=== PATIENT | female | born 1930 | race Caucasian/White ===

== ENCOUNTER → 2018-02-06 | Outpatient (CLI) | payer MEDICARE ==
[~2018-02-06] MED LIST: AMLO1CAP12 PO; CALC500T54 PO; EZET1TAB41 PO; GLIP5POW MC; INSU100I18 SQ; METF500T16 PO; OMEP20CA9 PO; POTA10TA5 PO; VIT1TABL32 PO
--- NOTE | 2018-02-06 12:48 | RAD ---
MR#: [id number] Date of Study: 02/06/2018 Ordering Physician: CYNTHIA WHEAT, Referring Physician: CYNTHIA WHEAT, Tech: Minda Pierre RDMS, RVT APPROVED REPORT Patient Location: OUT-PATIENT Laterality:Bilateral Indications Bruit Grayscale images of the bilateral common carotid, internal and external carotid vessels reveal mild n onobstructive plaque mostly localized to the bilateral carotid bulbs. Spectral waveforms and color Doppler on the right and left sides involving the internal cardio arteri es do not reveal any significant obstructive lesions. Overall 0 to less than 50% stenosis. The bilateral vertebral velocities are within normal limits. Normal bilateral ICA to CCA ratios. Surgery/Intervention Endarterectomy: right left Doppler Spectral Velocity Analysis Right Left pCCA 65/8 cm/spCCA 54/7 cm/s mCCA 70/6 cm/smCCA 52/9 cm/s dCCA 69/8 cm/sdCCA 55/10 cm/s Bulb Bulb 55/5 cm/s ECA 62/7 cm/sECA 167/2 cm/s pICA 50/7 cm/spICA 38/7 cm/s Roberto 63/9 cm/smICA 29/7 cm/s dICA 65/11 cm/sdICA 32/7 cm/s Vert. 45/9 cm/sVert. 27/6 cm/s Subcl. 54/4 cm/sSubcl. 47/7 cm/s ICA/CCA 0.93ICA/CCA 0.70 Critical Notification Critical Value: No <Conclusion> No significant carotid arterial disease. Previous carotid endarterectomies do not have any significant restenosis. Signed by : León Peraza, Electronically Approved : 02/06/2018 12:47:25
--- NOTE | 2018-02-06 13:59 | CARD ---
MR#: [id number] Account#: Date of Study: 02/06/2018 Ordering Physician: Drake: Xi Baird RDCS APPROVED REPORT EXAM: Two-dimensional and M-mode echocardiogram with Doppler and color Doppler. Other Information Quality : Good INDICATION Cardiac Disease: CAD Surgery/Intervention Pacemaker: 2D DIMENSIONS RVDd2.5 (2.9-3.5cm)Left Atrium(2D)3.8 (1.6-4.0cm) IVSd1.0 (0.7-1.1cm)Aortic Root(2D)2.5 (2.0-3.7cm) LVDd4.6 (3.9-5.9cm)LVOT Diameter2.0 (1.8-2.4cm) PWd0.9 (0.7-1.1cm)LVDs3.3 (2.5-4.0cm) FS (%) 29.1 %SV55.5 ml LVEF(%)56.0 (>50%) Aortic Valve AoV Peak Hiram.119.4cm/sAoV VTI23.5cm AO Peak GR.5.7mmHgLVOT Peak Hiram.87.8cm/s LVOT VTI 19.01cmAO Mean GR.3mmHg MODESTA (VMAX)2.73be2JQP (VTI)2.42cm2 Mitral Valve MV E Qsrspdji606.3cm/sMV DECEL ZKUM684ym MV A Hxzvhhpu85.4cm/sE/A Ratio1.9 Tricuspid Valve TR P. Sqakzpqj134fe/sRAP FOCMAKGA6zaLr TR Peak Gr.02elUiYXWZ31txGr Pulmonary Vein S1 Nchwwyzs12.4cm/sD2 Ikcbhjyu07.6cm/s LEFT VENTRICLE The left ventricle is normal size. There is normal left ventricular wall thickness. The left ventricu lar systolic function is normal and the ejection fraction is within normal range. The Ejection Fracti on is 55-60%. There is normal LV segmental wall motion. RIGHT VENTRICLE The right ventricle is normal size. The right ventricular systolic function is normal. There is a dev ice lead in the right ventricle. ATRIA The left atrium is borderline dilated. The right atrium size is normal. A device lead is seen in the right atrium consistent with history. The interatrial septum is intact with no evidence for an atrial septal defect or patent foramen ovale as noted on 2-D or Doppler imaging. AORTIC VALVE The aortic valve is calcified but opens well. Doppler and Color Flow revealed no significant aortic r egurgitation. There is no significant aortic valvular stenosis. MITRAL VALVE The mitral valve is calcified but opens well. Mitral annular calcification is mild. There is no evide nce of mitral valve prolapse. There is no mitral valve stenosis. Doppler and Color-flow revealed mode rate mitral regurgitation. TRICUSPID VALVE The tricuspid valve is normal in structure and function. Doppler and Color Flow revealed moderate tri cuspid regurgitation. The PA pressure was estimated at 62 mmHg. There is no tricuspid valve stenosis. PULMONIC VALVE The pulmonic valve is not well visualized. Doppler and Color Flow revealed trace pulmonic valvular re gurgitation. There is no pulmonic valvular stenosis. GREAT VESSELS The aortic root is normal in size. The ascending aorta is normal in size. The IVC is normal in size a nd collapses >50% with inspiration. PERICARDIAL EFFUSION There is no evidence of significant pericardial effusion. Critical Notification Critical Value: No <Conclusion> The left ventricle is normal size. The left ventricular systolic function is normal and the ejection fraction is within normal range. The Ejection Fraction is 55-60%. There is a device lead in the right ventricle. The right atrium size is normal. A device lead is seen in the right atrium consistent with history. There is no significant aortic valvular stenosis. Doppler and Color Flow revealed no significant aortic regurgitation. Doppler and Color-flow revealed moderate mitral regurgitation. Doppler and Color Flow revealed moderate tricuspid regurgitation. The PA pressure was estimated at 62 mmHg. Signed by : Baltazar Snell MD Electronically Approved : 02/06/2018 11:52:43
== END | disposition home or self-care (01) ==
LOC: US 08:52
PROVIDERS: ATTEND Internal Medicine Cardiovascular Disease
DX: I25.10 Atherosclerotic heart disease of native coronary artery without angina pectoris (principal); I08.1 Rheumatic disorders of both mitral and tricuspid valves; R09.89 Other specified symptoms and signs involving the circulatory and respiratory systems; Z88.8 Allergy status to other drugs, medicaments and biological substances
CPT/HCPCS: 93306; 93880

== ENCOUNTER 2018-12-13 10:48 | Inpatient (IN) | payer MEDICARE ==
[~2018-12-13] VITALS: Ht 149.9 cm; Wt 55.8 kg
[~2018-12-13 10:48] MED LIST changes: -AMLO1CAP12 PO; +AMLO1CAP13 PO; +OMEP20CA10 PO; -OMEP20CA9 PO
[2018-12-13] MEDS ORDERED: IV NORMAL SALINE 1,000ML 1,000 ML IV ONE (11:15)
--- NOTE | 2018-12-13 11:19 | PHYS DOC ---
Past History Past Medical History: CAD, Diabetes, Hypertension Past Surgical History: Appendectomy, Cholecystectomy, Hysterectomy, Tonsillectomy, Other Additional Past Surgical Histo: SHOULDER SURGERY, HEART CATH WITH STENTS, SHOULDER SURGERY Alcohol Use: None Drug Use: None Adult General Chief Complaint Chief Complaint: MULTIPLE COMPLAINTS HPI HPI 88-year-old female presents to the emergency department with multiple complaints. Patient was seen at her primary care physician's office on Monday as well as Monday. She describes nausea, loose stools, vomiting �3-4 days. She is well describes coughing and runny nose. Patient overall has had decreased oral intake both liquid and food, she states she did take lucerne at today. Patient has a history of diabetes. She denies any fevers or chills, denies any chest pain or shortness of breath. She denies any abdominal pain or distention on exam. Review of Systems Review of Systems Constitutional: Denies fever or chills [] HENT: Nasal congestion Respiratory: Cough, no shortness of breath Cardiovascular: No additional information not addressed in HPI [] GI: Nausea, vomiting, loose stool : Denies dysuria or hematuria [] Musculoskeletal: Denies back pain or joint pain [] Integument: Bilateral lower x-rays rash Neurologic: Denies headache, focal weakness or sensory changes [] All other systems were reviewed and found to be within normal limits, except as documented in this note. Current Medications Current Medications Current Medications Medications (Trade) Dose Ordered Sig/Wade Start Time Stop Time Status Last Admin Dose Admin Ondansetron HCl (Zofran) 4 mg 1X ONCE 12/13/18 11:30 12/13/18 11:31 Sodium Chloride 1,000 ml @ 1,000 mls/hr 1X ONCE 12/13/18 11:15 12/13/18 12:14 Allergies Allergies Allergies Coded Allergies Type Severity Reaction Last Updated Verified clopidogrel Allergy Severe 07/23/13 Yes iodine Allergy Severe 07/23/13 Yes carvedilol Allergy Unknown 07/23/13 Yes ciprofloxacin Allergy Unknown 12/13/18 Yes Uncoded Allergies Type Severity Reaction Last Updated Verified AMENGL Allergy Unknown 07/23/13 CYPRIL Allergy Unknown 07/23/13 GLUGAPHAGE Allergy Unknown 07/23/13 Physical Exam Physical Exam Constitutional: Well developed, well nourished, no acute distress, non-toxic appearance. [] HENT: Normocephalic, atraumatic, bilateral external ears normal, oropharynx dry, no oral exudates, nose normal. [] Eyes: PERRLA, EOMI, conjunctiva normal, no discharge. [] Cardiovascular:Heart rate regular rhythm, no murmur [] Lungs & Thorax: Bilateral breath sounds clear to auscultation [] Abdomen: Bowel sounds normal, soft, no tenderness, no masses, no pulsatile masses. [] Skin: Warm, dry, no erythema, bilateral lower extremity rash, appears petechial, nonraised Extremities: No tenderness, no cyanosis, no clubbing, trace edema bilateral lower extremity Neurologic: Alert and oriented X 3, no focal deficits noted. [] Psychologic: Affect normal, judgement normal, mood normal. [] Current Patient Data Vital Signs Vital Signs Date Time Temp Pulse Resp B/P (MAP) Pulse Ox O2 Delivery O2 Flow Rate FiO2 12/13/18 10:59 97.2 85 18 93 Room Air Lab Results Laboratory Tests Test 12/13/18 11:12 White Blood Count 10.0 x10^3/uL Red Blood Count 3.75 x10^6/uL Hemoglobin 11.7 g/dL Hematocrit 35.1 % Mean Corpuscular Volume 94 fL Mean Corpuscular Hemoglobin 31 pg Mean Corpuscular Hemoglobin Concent 33 g/dL Red Cell Distribution Width 13.3 % Platelet Count 343 x10^3/uL Neutrophils (%) (Auto) 80 % Lymphocytes (%) (Auto) 7 % Monocytes (%) (Auto) 8 % Eosinophils (%) (Auto) 5 % Basophils (%) (Auto) 1 % Neutrophils # (Auto) 8.0 x10^3uL Lymphocytes # (Auto) 0.7 x10^3/uL Monocytes # (Auto) 0.8 x10^3/uL Eosinophils # (Auto) 0.5 x10^3/uL Basophils # (Auto) 0.1 x10^3/uL Sodium Level 124 mmol/L Potassium Level 4.8 mmol/L Chloride Level 89 mmol/L Carbon Dioxide Level 26 mmol/L Anion Gap 9 Blood Urea Nitrogen 16 mg/dL Creatinine 1.4 mg/dL Estimated GFR (Cockcroft-Gault) 35.4 BUN/Creatinine Ratio 11 Glucose Level 163 mg/dL Lactic Acid Level 0.7 mmol/L Calcium Level 8.6 mg/dL Total Bilirubin 0.5 mg/dL Aspartate Amino Transf (AST/SGOT) 16 U/L Alanine Aminotransferase (ALT/SGPT) 14 U/L Alkaline Phosphatase 96 U/L Total Protein 6.9 g/dL Albumin 3.1 g/dL Albumin/Globulin Ratio 0.8 Current Medications Medications (Trade) Dose Ordered Sig/Wade Route PRN Reason Start Time Stop Time Status Last Admin Dose Admin Sodium Chloride 1,000 ml @ 1,000 mls/hr 1X ONCE IV 12/13/18 11:15 12/13/18 12:14 DC 12/13/18 11:18 Ondansetron HCl (Zofran) 4 mg 1X ONCE IV 12/13/18 11:30 12/13/18 11:31 DC 12/13/18 11:20 Ceftriaxone Sodium 1 gm/ Sodium Chloride 50 ml @ 100 mls/hr 1X ONCE IV 12/13/18 12:45 12/13/18 13:14 Azithromycin (Zithromax) 500 mg 1X ONCE PO 12/13/18 12:45 12/13/18 12:46 EKG EKG EKG reviewed 1134, sinus rhythm, no evidence of acute ST elevation.[] Radiology/Procedures Radiology/[place] [address] IMAGING REPORT Signed PATIENT: DAVID MONROE ACCOUNT: [id number] : 1930 LOCATION: ER AGE: 88 SEX: F EXAM STATUS: REG ER ORD. PHYSICIAN: PEDRITO KINSEY MD REASON: cough PROCEDURE: CHEST AP ONLY EXAM: CHEST 1 VIEW History: Cough COMPARISON: None available. TECHNIQUE: Single portable radiograph of the chest FINDINGS: The cardiac silhouette is unremarkable. Left-sided cardiac pacer is identified. Mild prominent bilateral interstitial lung markings, left greater than right, could be interstitial infiltrates or chronic interstitial changes or pneumonia. IMPRESSION: Prominent appearing bilateral interstitial lung markings left greater than right could be interstitial infiltrates or pneumonia or chronic interstitial changes. Electronically signed by: Kai Vasquez MD (12/13/2018 11:59 AM) [id number] DICTATED AND SIGNED BY: KAI VASQUEZ MD DATE: 12/13/18 1159 CC: PEDRITO KINSEY MD; LEV ESCALANTE MD ~ [] Course & Med Decision Making Course & Med Decision Making Pertinent Labs and Imaging studies reviewed. (See chart for details) 88-year-old female presents to the emergency department with multiple complaints. Patient was seen at her primary care physician's office on Monday as well as Monday. She describes nausea, loose stools, vomiting �3-4 days. She is well describes coughing and runny nose. Patient overall has had decreased oral intake both liquid and food, she states she did take lucerne at today. Patient has a history of diabetes. She denies any fevers or chills, denies any chest pain or shortness of breath. She denies any abdominal pain or distention on ex am. Labs and imaging reviewed. Evidence of consolidation in left lung, greater than right. WBC normal however with desaturations into the 80's at rest. Cultures obtained, IV abx initiated for CAP in the ER. Discussed admit with Hospitalist. Hydration 500ml provided in ER Dragon Disclaimer Dragon Disclaimer This electronic medical record was generated, in whole or in part, using a voice recognition dictation system. Departure Departure: Impression: Primary Impression: CAP (community acquired pneumonia) Additional Impressions: Hypoxemia Hyponatremia Disposition: ADMITTED INPATIENT Admitting Physician: Ly Box Condition: STABLE Referrals: LEV ESCALANTE MD (PCP) Problem Qualifiers Primary Impression: CAP (community acquired pneumonia) Laterality: left Lung location: lower lobe of lung Qualified Codes: J18.1 - Lobar pneumonia, unspecified organism PEDRITO KINSEY MD Dec 13, 2018 11:18
[2018-12-13] MEDS ORDERED: ONDANSETRON PF 4 MG/2 ML VIAL. IV ONE (11:30)
[2018-12-13 11:38] LABS: BASO # 0.1 x10^3/uL (0.0-0.2); BASO % 1 % (0-3); EOS # 0.5 x10^3/uL (0.0-0.7); EOS % 5 % (0-3); HEMATOCRIT 35.1 % (36.0-47.0); HEMOGLOBIN 11.7 g/dL (12.0-15.5); LYMPH # 0.7 x10^3/uL (1.0-4.8); LYMPH % 7 % (24-48); MEAN CORPUSCULAR HEMOGLOBIN 31 pg (25-35); MEAN CORPUSCULAR HGB CONC 33 g/dL (31-37); MEAN CORPUSCULAR VOLUME 94 fL (79-100); MONO # 0.8 x10^3/uL (0.0-1.1); MONO % 8 % (0-9); NEUT % 80 % (31-73); PLATELET COUNT 343 x10^3/uL (140-400); RED BLOOD COUNT 3.75 x10^6/uL (3.50-5.40); RED CELL DISTRIBUTION WIDTH 13.3 % (11.5-14.5)
[2018-12-13 11:53] LABS: ALBUMIN 3.1 g/dL (3.4-5.0); ALBUMIN/GLOBULIN RATIO 0.8 (1.0-1.7); CALCIUM 8.6 mg/dL (8.5-10.1); CREATININE 1.4 mg/dL (0.6-1.0); GFR 35.4; POTASSIUM 4.8 mmol/L (3.5-5.1); TOTAL BILIRUBIN 0.5 mg/dL (0.2-1.0); TOTAL PROTEIN 6.9 g/dL (6.4-8.2)
--- NOTE | 2018-12-13 12:01 | RAD ---
EXAM: CHEST 1 VIEW History: Cough COMPARISON: None available. TECHNIQUE: Single portable radiograph of the chest FINDINGS: The cardiac silhouette is unremarkable. Left-sided cardiac pacer is identified. Mild prominent bilateral interstitial lung markings, left greater than right, could be interstitial infiltrates or chronic interstitial changes or pneumonia. IMPRESSION: Prominent appearing bilateral interstitial lung markings left greater than right could be interstitial infiltrates or pneumonia or chronic interstitial changes. Electronically signed by: Kai Vasquez MD (12/13/2018 11:59 AM) [id number]
[2018-12-13] MEDS ORDERED: IV NORMAL SALINE 50ML 50 ML ONE (12:15)
[2018-12-13] MEDS ORDERED: cefTRIAXone SODIUM 1 GM VIAL ONE (12:15)
[2018-12-13 12:19] LABS: BILIRUBIN,URINE NEG (NEG); CLARITY,URINE TURBID; COLOR,URINE YELLOW; GLUCOSE,URINE NEG (NEG); NITRITE,URINE NEG (NEG); RBC,URINE RARE /HPF (0-2); UROBILINOGEN,URINE 0.2 mg/dL (0.2 mg/dL)
[2018-12-13 12:20] LABS: BACTERIA,URINE MANY /HPF (0-FEW); SQUAMOUS EPITHELIAL CELL,UR OCC /LPF; WBC,URINE 20-40 /HPF (0-4)
[2018-12-13] MEDS ORDERED: AZITHROMYCIN 250 MG TABLET. PO ONE (12:45)
--- NOTE | 2018-12-13 13:01 | EKG ---
[address] [address] Test Date: 2018-12-13 Test Time: 11:29:47 Pat Name: DAVID MONROE Department: Room: Gender: F Ham Trimmer: : 1930 Requested By: PEDRITO KINSEY Order Number: [id number] Reading MD: Measurements Intervals [place] Rate: 65 P: 0 MS: 160 QRS: -72 QRSD: 156 T: 75 QT: 432 QTc: 450 Interpretive Statements SINUS RHYTHM ABNORMAL LEFT AXIS DEVIATION NON SPECIFIC INTRAVENTRICULAR BLOCK QRS(T) CONTOUR ABNORMALITY CONSISTENT WITH ANTEROSEPTAL INFARCT PROBABLY OLD CONSIDER INFERIOR MYOCARDIAL DAMAGE ABNORMAL ECG RI6.01 No previous ECG available for comparison
[2018-12-13 14:13] VITALS: BP 166/63
[2018-12-13] MEDS ORDERED: METO25TA4 PO (16:18)
[2018-12-13] MEDS ORDERED: MULT-47 PO (16:18)
[2018-12-13] MEDS ORDERED: GLIP10TA13 PO (16:18)
[2018-12-13] MEDS ORDERED: ISOS30TA4 PO (16:18)
[2018-12-13] MEDS ORDERED: GABA-585 PO (16:18)
[2018-12-13] MEDS ORDERED: ASPI-630 PO (16:18)
[2018-12-13] MEDS ORDERED: FURO20TA3 PO (16:18)
[2018-12-13] MEDS ORDERED: TICA90TA PO (16:18)
[2018-12-13] MEDS ORDERED: MAGN400C PO (16:18)
[2018-12-13] MEDS ORDERED: ACET-704 PO (16:18)
[2018-12-13] MEDS: IPRATRPIUM/ALBUTEROL 0.5/2.5MG 3 ML NEBU. NEB SCH ×2 (17:07→19:38)
[2018-12-13] MEDS ORDERED: DEXTROSE 50% 25 GM / 50ML DISP.SYRIN. IV PRN (18:30)
[2018-12-13] MEDS: ACETAMINOPHEN/CODEINE 300/30MG TABLET PO SCH (18:45)
[2018-12-13] MEDS: ONDANSETRON PF 4 MG/2 ML VIAL. IV PRN (20:02)
[2018-12-13 20:23] VITALS: BP 143/58
[2018-12-13] MEDS: ISOSORBIDE MONONITRATE ER 30 MG TAB.ER.24H PO SCH (21:02)
[2018-12-13] MEDS: METOPROLOL TART IMMED RELEASE 25 MG TABLET PO SCH (21:03)
[2018-12-13] MEDS: ATORVASTATIN CALCIUM 10 MG TABLET. PO SCH (21:03)
[2018-12-13] MEDS: GABAPENTIN 100 MG CAPSULE. PO SCH (21:04)
--- NOTE | 2018-12-13 23:03 | HP ---
ADMIT DATE: 12/13/2018 HISTORY OF PRESENT ILLNESS: This is an 88-year-old female patient who came to the Emergency Department of [facility] with multiple complaints. She apparently was seen at her primary care physician's office on Monday as well as on Monday. She describes having nausea and loose stools, vomiting 3-4 times a day. She also stated that she is having cough and runny nose. The patient overall has had decreased oral intake, both liquid and food. She, however, denied any fevers or chills. Denied any chest pain or shortness of breath. She was evaluated in the Emergency Room, was found to be hyponatremic. She also has impaired kidney function and hypoalbuminemia. Her urinalysis showed that the patient has yellow, turbid urine with a pH of 8, specific gravity of 1.015. There was large amount of protein, negative for glucose and ketones. There was trace of blood, negative for nitrite with moderate amount of leukocyte esterase, rare rbc's, and 20-40 wbc's, too many bacteria. Her chest x-ray showed that she has prominent-appearing bilateral interstitial lung marking, left greater than right. It could be interstitial infiltrate or pneumonia or chronic interstitial changes. The patient was admitted with diagnosis of community-acquired pneumonia as well as probably UTI, hyponatremia, and acute kidney injury, was started on IV ceftriaxone as well as Zithromax, and was admitted for further evaluation and treatment. PAST MEDICAL HISTORY: Significant for hypertension, hyperlipidemia, type 2 diabetes mellitus. She has coronary artery disease, status post PCI with stent deployment x 4. She also has generalized osteoarthritis. PAST SURGICAL HISTORY: Significant for PCI with stent deployment, permanent pacemaker placement, cholecystectomy, tonsillectomy, appendectomy, total abdominal hysterectomy, bilateral salpingo-oophorectomy. She also has a shoulder surgery. ALLERGIES: She is allergic to AMENGL, CYPRIL, GLUCOPHAGE, CARVEDILOL, CIPROFLOXACIN, and PLAVIX, as well as IODINE. MEDICATIONS: She is currently on following medications: She is on Brilinta 180 mg once a day, isosorbide mononitrate 30 mg tablet, she takes half a tablet at bedtime. Metoprolol tartrate 12.5 mg twice a day, amlodipine besylate/benazepril 10/20 one tablet once a day, aspirin 81 mg once a day, Tylenol with Codeine for Tylenol No. 3 one tablet every 6 hours, gabapentin 100 mg 3 times a day, potassium chloride 10 mEq once a day, furosemide 20 mg daily, magnesium oxide 400 mg once a day, glipizide 10 mg twice a day, multivitamin with mineral 1 tablet once a day. FAMILY HISTORY: She has one brother, older, at the age of 82 because of throat cancer. One sister of CVA and one sister because of congestive heart failure. Her father at age of 65 because of myocardial infarction. Mother of breast cancer at the age of 54. SOCIAL HISTORY: She lives alone and fairly independent. She has 2 sons and 1 daughter. She quit smoking 25 years ago. She does not drink alcohol or use recreational drugs. She is retired. REVIEW OF SYSTEMS: The patient denied any blurring of vision. She has bilateral cataracts. Denied any blurring of vision, cataract, glaucoma, or macular degeneration. Denied any earache, tinnitus, or sensorineural deafness. Denied any nosebleeds, stuffy nose, or postnasal drip. Denied any sore throat, sore tongue, toothache, hoarseness of voice, or difficulty swallowing. She did have nausea, vomiting as well as loose bowel movement. Denied any dysuria, frequency, or hematuria. Denied any chest pain, shortness of breath, orthopnea, or paroxysmal nocturnal dyspnea. PHYSICAL EXAMINATION: GENERAL: On arrival to the Emergency Room, she looked well. She was somewhat pale, no jaundice, cyanosis, or thyromegaly. No jugular venous distention. No limb edema. VITAL SIGNS: Her heart rate was 80, blood pressure was 158/86, temperature was 97.2, respiratory rate was 18, and oxygen saturation was 86%, improved to 94% on 2 liters of oxygen. HEAD, EYES, EARS, NOSE AND THROAT: Normocephalic, atraumatic. NECK: Supple. HEART: Showed normal first and second heart sounds. No gallop or murmur. CHEST: Shows central trachea, equal bilateral expansion air entry, vesicular sounds with crepitation mostly in the left side posteriorly. I could not appreciate any rhonchi. ABDOMEN: Slightly distended, soft, nontender. No guarding or rigidity. No organomegaly. All hernial orifice intact. Bowel sounds normal. NEUROLOGIC: She was somewhat hard of hearing. Otherwise, her cranial nerves are intact. EXTREMITIES: She moves extremities without difficulty. She ambulates with a cane and/or walker. LABORATORY DATA: Her lab work on arrival, showed a white cell count of 10,000, hemoglobin 11.7, hematocrit 35, MCV 94 and platelet count 343,000 with normal manual differential. Her serum sodium was 124, potassium 4.8, chloride 89, bicarbonate 26, anion gap of 9, BUN 16, creatinine 1.4, estimated GFR was 35 mL per minute, her glucose 163. Lactic acid only 0.7, calcium was 8.6. Total bilirubin, AST, ALT, alkaline phosphatase were normal. Total protein was 6.9, albumin was 3.1. Her urinalysis showed the urine was yellow, turbid with a pH of 8, specific gravity 1.015, there was large amount of protein, negative for glucose, ketones, and blood, negative for nitrite, negative for bilirubin. There was moderate amount of leukocyte esterase, rare rbc's, 20-40 wbc's, and many bacteria. Her chest x-ray showed the cardiac silhouette is unremarkable. Left-sided cardiac pacer is identified. Mild prominent bilateral interstitial lung marking, left greater than right. It could be interstitial infiltrate and/or chronic interstitial changes of pneumonia. ASSESSMENT AND PLAN: The patient was admitted with community-acquired pneumonia. She has also urinary tract infection, hyponatremia, and acute kidney injury. My plan is to continue with Brilinta. Continue with IV azithromycin as well as ceftriaxone and we will monitor her labs closely and decide on further management accordingly. AUDIE GARCIA MD DR: ARMANI/josiah JOB#: [id number] / [id number]
[2018-12-13 23:55] VITALS: BP 105/59
[2018-12-14] MEDS: ACETAMINOPHEN/CODEINE 300/30MG TABLET PO SCH ×4 (00:06→17:05)
[2018-12-14] MEDS: IPRATRPIUM/ALBUTEROL 0.5/2.5MG 3 ML NEBU. NEB SCH ×4 (05:43→21:11)
[2018-12-14 05:55] VITALS: BP 114/68
[2018-12-14 06:07] VITALS: BP 145/58
[2018-12-14 06:54] LABS: BASO # 0.1 x10^3/uL (0.0-0.2); BASO % 1 % (0-3); EOS # 0.6 x10^3/uL (0.0-0.7); EOS % 8 % (0-3); HEMATOCRIT 31.3 % (36.0-47.0); HEMOGLOBIN 10.5 g/dL (12.0-15.5); LYMPH # 1.3 x10^3/uL (1.0-4.8); LYMPH % 15 % (24-48); MEAN CORPUSCULAR HEMOGLOBIN 32 pg (25-35); MEAN CORPUSCULAR HGB CONC 34 g/dL (31-37); MEAN CORPUSCULAR VOLUME 94 fL (79-100); MONO # 0.8 x10^3/uL (0.0-1.1); MONO % 10 % (0-9); NEUT # 5.4 x10^3uL (1.8-7.7); NEUT % 66 % (31-73); PLATELET COUNT 310 x10^3/uL (140-400); RED BLOOD COUNT 3.33 x10^6/uL (3.50-5.40); RED CELL DISTRIBUTION WIDTH 13.6 % (11.5-14.5); WHITE BLOOD COUNT 8.2 x10^3/uL (4.0-11.0)
[2018-12-14 07:08] LABS: ALBUMIN 2.7 g/dL (3.4-5.0); ALBUMIN/GLOBULIN RATIO 0.9 (1.0-1.7); CALCIUM 8.2 mg/dL (8.5-10.1); CREATININE 1.3 mg/dL (0.6-1.0); GFR 38.6; POTASSIUM 4.7 mmol/L (3.5-5.1); TOTAL BILIRUBIN 0.4 mg/dL (0.2-1.0); TOTAL PROTEIN 5.7 g/dL (6.4-8.2)
[2018-12-14] MEDS: INSULIN LISPRO 300 UNITS/3 ML VIAL. SQ SCH ×3 (07:31→17:09)
[2018-12-14] MEDS: PANTOPRAZOLE 40 MG TABLET. PO SCH (07:41)
[2018-12-14] MEDS: ASPIRIN 81 MG TAB.CHEW PO SCH (07:42)
[2018-12-14] MEDS: TICAGRELOR 90 MG TABLET. PO SCH (07:43)
[2018-12-14] MEDS: MAGNESIUM OXIDE 400 MG TABLET PO SCH (07:43)
[2018-12-14] MEDS: CELECOXIB 100 MG CAPSULE PO SCH (07:43)
[2018-12-14] MEDS: GABAPENTIN 100 MG CAPSULE. PO SCH ×3 (07:44→20:33)
[2018-12-14] MEDS: MULTIVITAMIN with MINERAL TABLET. PO SCH (07:44)
[2018-12-14] MEDS: METOPROLOL TART IMMED RELEASE 25 MG TABLET PO SCH ×2 (07:44→20:32)
[2018-12-14 10:35] VITALS: BP 135/71
[2018-12-14] MEDS: ONDANSETRON PF 4 MG/2 ML VIAL. IV PRN (10:40)
[2018-12-14] MEDS: AZITHROMYCIN 250 MG TABLET. PO SCH (15:25)
[2018-12-14] MEDS: IV NORMAL SALINE 1,000ML 1,000 ML IV SCH (15:27)
[2018-12-14 15:31] VITALS: BP 148/71
[2018-12-14 19:27] VITALS: BP 151/69
[2018-12-14] MEDS: ATORVASTATIN CALCIUM 10 MG TABLET. PO SCH (20:32)
[2018-12-14] MEDS: ISOSORBIDE MONONITRATE ER 30 MG TAB.ER.24H PO SCH (20:32)
[2018-12-14] MEDS ORDERED: ACETAMINOPHEN/CODEINE 300/30MG TABLET PO PRN (22:00)
--- NOTE | 2018-12-14 23:18 | PN ---
DATE: 12/14/2018 SUBJECTIVE: The patient is resting, slightly propped up in bed, in no apparent respiratory distress. She is awake, alert, feeling generally better. However, her sodium is slightly up at 126. PHYSICAL EXAMINATION: GENERAL: When I examined her, she looked somewhat pale, but no jaundice, cyanosis, or thyromegaly. No jugular venous distension. No limb edema. VITAL SIGNS: Her heart rate was 61, blood pressure was 135/71, temperature was 97.6, respiratory rate was 18 and oxygen saturation was 98% on 3 liters of oxygen. HEAD, EYES, EARS, NOSE AND THROAT: Showed normocephalic, atraumatic. NECK: Supple. HEART: Showed normal first and second heart sounds. No gallop or murmur. CHEST: Shows central trachea, equal bilateral expansion, bilateral equal air entry, vesicular sounds with crepitation both sides. No rhonchi. ABDOMEN: Distended, soft, nontender. NEUROLOGIC: She was awake, alert, responding appropriately. All cranial nerves intact. She moves extremities without difficulty. She ambulates without assistance or assistive devices. Her intake was 500, no output was recorded. LABORATORY DATA: Her lab work this morning showed a white cell count of 8200, hemoglobin was 10, hematocrit 30, MCV 94 and platelet count of 310,000. Her serum sodium is 126, potassium 4.7, chloride 92, bicarbonate 26, anion gap of 8, BUN 12, creatinine 1.3, estimated GFR was 38 mL per minute. Her glucose 105, calcium was 8.2. Total bilirubin, AST, ALT, alkaline phosphatase were normal. Total protein was 5.7, albumin was 2.7. Her blood cultures still pending at the time of this dictation. ASSESSMENT: 1. Community-acquired pneumonia for which she is on IV ceftriaxone and Zithromax. 2. Urinary tract infection for which she is on ceftriaxone. 3. Hyponatremia, slightly better. Her sodium has risen from 124 to 126. 4. Acute kidney injury, slightly improving. 5. She has multiple other medical problems that include: A. Hypertension. B. Hyperlipidemia. C. Type 2 diabetes mellitus. D. Coronary artery disease, status post PCI with stent deployment. E. Generalized osteoarthritis. PLAN: My plan is to continue with IV antibiotic. I will start her on normal saline and repeat her lab work tomorrow and we will decide on further management accordingly. AUDIE GARCIA MD DR: ARMANI/josiah JOB#: [id number] / [id number]
[2018-12-14 23:22] VITALS: BP 143/67
[2018-12-15] MEDS ORDERED: guaiFENesin 300 MG/15 ML LIQUID PO PRN (00:30)
[2018-12-15] MEDS: IV NORMAL SALINE 1,000ML 1,000 ML IV SCH (05:29)
[2018-12-15] MEDS: IPRATRPIUM/ALBUTEROL 0.5/2.5MG 3 ML NEBU. NEB SCH ×3 (05:30→16:00)
[2018-12-15 05:36] VITALS: BP 132/71
[2018-12-15 07:01] LABS: CREATININE 1.2 mg/dL (0.6-1.0); GFR 42.3; POTASSIUM 4.8 mmol/L (3.5-5.1)
[2018-12-15] MEDS: INSULIN LISPRO 300 UNITS/3 ML VIAL. SQ SCH ×2 (08:00→12:00)
[2018-12-15] MEDS: ASPIRIN 81 MG TAB.CHEW PO SCH (08:16)
[2018-12-15] MEDS: GABAPENTIN 100 MG CAPSULE. PO SCH ×2 (08:16→14:04)
[2018-12-15] MEDS: MAGNESIUM OXIDE 400 MG TABLET PO SCH (08:16)
[2018-12-15] MEDS: PANTOPRAZOLE 40 MG TABLET. PO SCH (08:16)
[2018-12-15] MEDS: METOPROLOL TART IMMED RELEASE 25 MG TABLET PO SCH (08:17)
[2018-12-15] MEDS: TICAGRELOR 90 MG TABLET. PO SCH (08:17)
[2018-12-15] MEDS: AZITHROMYCIN 250 MG TABLET. PO SCH (08:17)
[2018-12-15] MEDS: CELECOXIB 100 MG CAPSULE PO SCH (08:18)
[2018-12-15] MEDS: MULTIVITAMIN with MINERAL TABLET. PO SCH (08:18)
[2018-12-15] MEDS ORDERED: ONDANSETRON PF 4 MG/2 ML VIAL. IV PRN (09:30)
[2018-12-15 10:50] VITALS: BP 109/64
--- NOTE | 2018-12-15 12:34 | PN ---
DATE: 12/15/2018 SUBJECTIVE: The patient is resting, slightly propped up in bed, in no apparent respiratory distress; however, she has complained that she has had recurrent bouts of cough and she could not sleep last night until around 1:00. She also had been no nauseous and has dry heaving and her abdomen is markedly distended. She has not had any bowel movement since last . PHYSICAL EXAMINATION: GENERAL: When I examined her this morning, she looked pale, but no jaundice, cyanosis, or thyromegaly. No jugular venous distension. No limb edema. VITAL SIGNS: Her heart rate was 61, blood pressure was 109/64, temperature was 97.6, respiratory rate was 20, and oxygen saturation was 95% on 2 liters of oxygen. HEAD, EYES, EARS, NOSE, AND THROAT: Normocephalic, atraumatic. NECK: Supple. HEART: Showed normal first and second heart sounds. No gallop or murmur. CHEST: Clear to auscultation. No crepitation or rhonchi. ABDOMEN: The abdomen was markedly distended, soft, nontender. There is no guarding or rigidity. No organomegaly. All hernial orifice intact. Bowel sounds normal. She has a tympanitic percussion note. NEUROLOGIC: She is hard of hearing, otherwise all cranial nerves intact. She moves extremities without difficulty. Her intake over the last 24 hours was 1850, no output was recorded. LABORATORY DATA: Her lab work this morning showed a serum sodium of 125, potassium 4.8, chloride 93, bicarbonate 25, anion gap of 7, BUN 11, creatinine 1.2, estimated GFR was 42 mL per minute. Her glucose 163, calcium was 8. Her total bilirubin, AST, ALT, alkaline phosphatase were normal. Total protein was 5.7, albumin was 2.7. Her white cell count was 8200, hemoglobin 10, hematocrit 30, MCV 94, and platelet count of 310,000. Urinalysis showed she has large amount of wbc's and moderate amount of leukocyte esterase. Her urine culture has grown more than 100,000 colony forming units per mL of Escherichia coli, sensitivity is still pending; however, her blood culture is still pending. We did send urine for Legionella and streptococcal antigen, the result of which is still pending. PLAN: My plan is to continue with IV antibiotic in the form of Rocephin and Zithromax, change Zithromax to IV and we will discontinue her Celebrex and arrange for her to have DICTATION ENDS HERE AUDIE GARCIA MD DR: ARMANI/josiah JOB#: [id number] / [id number]
--- NOTE | 2018-12-15 12:49 | RAD ---
Examination: CT CHEST ABDOMEN PELVIS WO History: Recurrent bouts of nausea, vomiting, and abdominal distention Comparison/Correlation: None Findings: Axial images of the chest, abdomen, and pelvis were obtained without contrast. Sagittal and coronal reformatted images were provided. Small pleural effusions are present. Diffuse pulmonary interstitial edema and/or infiltrates noted. Right lower paratracheal lymph nodes are present measuring up to 1.3 cm diameter. Enlarged subcarinal lymph node or mass measuring up to 3.2 cm x 3.4 cm anteroposterior by 1.6 and a longitudinal appears be present on axial image 27 and coronal image 36. Evaluation is limited without IV contrast. Marked coronary arterial calcifications are present. Small hiatal hernia is present. Cholecystectomy noted. Liver, spleen, pancreas, and adrenal glands are unremarkable. Right kidney is unremarkable. Left hydronephrosis is present with perinephric stranding. Minimal edema involving the left iliac fossa noted. Retained stool within the proximal colon noted. Moderate of the transverse colon is present with transition in the left iliac fossa level. Diverticulosis of the colon noted. No loculated collection identified. Urinary bladder is unremarkable. No inflammatory change about the cecum. Kyphosis of thoracic spine is present. Lordosis of the lumbar spine is notable. Impression: Bilateral pleural effusions. Pulmonary interstitial edema and/or infiltrates. Enlarged lymph nodes are present which may relate to vascular engorgement or other etiology. Enlarged subcarinal lymph node or mass is present. Contrast enhanced CT is recommended for more complete assessment if able. Distention of the transverse colon. Transition in the left iliac fossa level is noted. This may represent ileus. No significant distention of more proximal bowel to strongly suggest obstruction. Correlate clinically in determining follow-up. Diverticulosis. Small hiatal hernia. PQRS Compliance Statement: One or more of the following individualized dose reduction techniques were utilized for this examination: 1. Automated exposure control 2. Adjustment of the mA and/or kV according to patient size 3. Use of iterative reconstruction technique Electronically signed by: Igor Whelan MD (12/15/2018 12:46 PM) [facility]
[2018-12-15 15:15] VITALS: BP 145/65
[2018-12-15] MEDS ORDERED: LACTOBACILLUS RHAMNOSUS GG 1 CAPSULE. PO SCH (21:00)
[2018-12-16] MEDS ORDERED: AZITHROMYCIN 500 MG in IV NORMAL SALINE 250ML 250 ML IV SCH (09:00)
== END 2018-12-15 16:00 | disposition short-term general hospital (02) | DRG 682 ==
LOC: ER 10:48 → 1 SOUTH 13:17
PROVIDERS: ADMIT Internal Medicine; ATTEND Internal Medicine
DX: N17.9 Acute kidney failure, unspecified (principal); J18.9 Pneumonia, unspecified organism; N39.0 Urinary tract infection, site not specified; E87.1 Hypo-osmolality and hyponatremia; R09.02 Hypoxemia; I10 Essential (primary) hypertension; I25.10 Atherosclerotic heart disease of native coronary artery without angina pectoris; E11.9 Type 2 diabetes mellitus without complications; Z90.49 Acquired absence of other specified parts of digestive tract; Z90.710 Acquired absence of both cervix and uterus; Z95.5 Presence of coronary angioplasty implant and graft; Z88.1 Allergy status to other antibiotic agents; Z88.8 Allergy status to other drugs, medicaments and biological substances; E78.5 Hyperlipidemia, unspecified; M15.9 Polyosteoarthritis, unspecified; Z95.0 Presence of cardiac pacemaker; Z82.3 Family history of stroke; Z80.8 Family history of malignant neoplasm of other organs or systems; Z82.49 Family history of ischemic heart disease and other diseases of the circulatory system; Z87.891 Personal history of nicotine dependence; Z80.3 Family history of malignant neoplasm of breast; Z79.02 Long term (current) use of antithrombotics/antiplatelets; Z91.041 Radiographic dye allergy status
CPT/HCPCS: 36415; 71045; 71250; 74176; 80048; 80053; 81001; 82947; 83605; 85025; 87040; 87086; 87186; 87449; 93005; 94640; 96361; 96365; 96375; J0456; J0696; J1815; J2405; J7620; 97116; 99285-25; J7030